=== PATIENT | female | born 1965 | race Caucasian/White ===

== ENCOUNTER 2024-12-27 13:00 | Inpatient (IN) | payer MEDICARE, OTHER, SELFPAY ==
[2024-12-27] VITALS (8 sets, daily range): BP systolic 105–154; BP diastolic 65–103
--- NOTE | 2024-12-27 10:55 | ED.GENMED ---
History of Present Illness
General
Chief Complaint: Fever
Source: patient, ambulance crew and prison
Time Seen by Provider: 12/27/24 10:36
History of Present Illness
History of Present Illness:
59-year-old female brought to the emergency room from [facility] where she was found to be tremulous and slow to answer questions. Her baseline mental status is mildly confused but interactive. She has a history of bipolar disease. Upon
arrival here in the emergency room she is found to have a fever with a temperature of 102.9. Patient offers no complaints. She denies chest pain, abdominal pain, dysuria, frequency, sore throat. When asked if she feels like 1 million bucks she
says yes.
Phy Exam
Physical Exam
Physical Exam:
General: Awake, Alert, Oriented X3. No acute distress.
Vitals: Febrile
Head: Atraumatic
Eyes: Pupils equal, EOMI
Throat: Airway intact, no exudates
Neck: Trachea midline
Lungs: Clear and equal b/l
Heart: Regular rate, no murmurs
Abd: Soft, Nontender, No pulsatile mass
Back: No CVA tenderness to percussion
Neuro: Nonfocal
Skin: Warm, dry, no rash
Extremities: pulses equal b/l, no edema
Sepsis
Sepsis Screening
Sepsis Assessment: Sepsis
Sepsis Screening: ARF-Creatinine >2.0
Sepsis Screen
Sepsis Screen: Sepsis
Date: 12/27/24
Time: 18:17
Course
Orders/Labs/Results
Orders:
Orders
12/27/24 10:45
Complete Blood Count/With Diff Urgent
Comprehensive Metabolic Panel Urgent
Lactic Acid Urgent
Urinalysis Reflex To Culture Urgent
Date Specimen was Collected: 12/27/24
Time Specimen was Collected: 10:43
Urine Microscopic Reflex Cult Urgent
Blood Culture Urgent
[facility] Source: Blood/Venous
Specimen Description:
Date Specimen was Collected: 12/27/24
Time Specimen was Collected: 10:43
Urine Culture Urgent
[facility] Source: U
Specimen Description:
Date Specimen was Collected: 12/27/24
Time Specimen was Collected: 10:43
12/27/24 10:48
COVID-19 Antigen Urgent
Source: Nasal Swab
Blood Culture Urgent
[facility] Source: Blood/Venous
Specimen Description:
Influenza A+B Rapid Molecular Urgent
[facility] Source: Nasal Swab
Specimen Description:
12/27/24 10:54
0.9% Sodium Chloride 1000 ml [Nss] 1,000 ml IV BOLUS
Acetaminophen [Tylenol] 650 mg PO NOW STA
CR Chest - 2 Views Urgent
Comment:
Reason For Exam: fever
12/27/24 11:43
CefTRIAXone [Rocephin] 2,000 mg IV NOW STA
12/27/24 11:46
CT Abd/pel Without Iv Or Oral Urgent
Comment:
Reason For Exam: fever, uti, elevated creat, eval for stone
12/27/24 11:48
Sterile Water [Sterile Water For Injection] 20 ml .ROUTE .STK-MED
12/27/24 12:49
Admit/Transfer Patient As Directed
Co-Sign Provider:
Level of Care: Inpatient admission
Assign to:: Medical/Surgical
Physician / Group: Darrell
Diagnosis: Confusion
Reason for Hospitalization: confusion
Expected length of stay greater than two midnights?: Yes
ELOS- Estimated Length of Stay in days: 3
I certify the patient meets the requirements for IP care: Yes
12/27/24 12:50
PRN Pain Medication Management As Directed
May give lesser potent ordered pain med per pt: Yes
preference::
Protocol:: Medication orders for pain may be administered in a
manner that supports deferring to patient preference
when the pt is:
- Requesting an ordered lesser potent pain medication.
Least to most potent pain medications are defined
as: acetaminophen < NSAID < tramadol < opioids
(morphine, oxycodone, hydromorphone).
- Requesting a lesser dose of the same medication IF
ORDERED.
- Requesting a less intrusive route of administration
if both routes are prescribed by the provider (PO <
IV).
12/27/24 13:40
Bisacodyl [Dulcolax] 10 mg RECTAL DAILYPRN PRN IF NO BM AFTR MOM
Magnesium Hydroxide [Milk of Magnesia] 30 ml PO HSPRN PRN IF NO BM BY 3RD DAY
12/27/24 13:40
DX Deep Vein Thrombosis Video Routine
12/27/24 18:00
Enoxaparin Sodium [Lovenox] 40 mg SC QPM
12/27/24 22:00
Divalproex Delayed Rel. 12 Hr [Depakote (12 Hr Release)] 2,500 mg PO HS
Lorazepam [Ativan] 0.5 mg PO HS
Oxybutynin Chloride [Ditropan] 5 mg PO HS
12/28/24 06:00
Levothyroxine [Synthroid] 88 mcg PO DAILY@0600
12/28/24 08:00
Aripiprazole [Abilify] 20 mg PO DAILY
Lurasidone HCl [Latuda] 120 mg PO DAILY
Metoprolol Xl [Toprol Xl] 50 mg PO DAILY
Multivitamin [Theragran] 1 tablet PO DAILY
Valsartan [Diovan] 160 mg PO DAILY
Abnormal Lab Results
12/27/24
10:45
RBC 3.52 L 10^6/uL
(4.20-5.40)
Hgb 11.7 L g/dL
(12.0-16.0)
Hct 34.7 L %
(37.0-47.0)
MCH 33.2 H pg
(27.0-31.0)
Plt Count 74 L 10^3/uL
(130-400)
Abs Immat Gran (auto) 0.1 H 10^3/uL
(0-0.05)
Absolute Monos (auto) 1.3 H 10^3/uL
(0.1-0.6)
Immature Gran % 1.1 H %
(0-0.5)
Lymphocytes % 19.7 L %
(20.5-51.1)
Monocytes % 16.2 H %
(1.7-9.3)
Chloride 115 H mmol/L
(98-107)
Carbon Dioxide 21 L mmol/L
(22-30)
BUN 32 H mg/dl
(7-17)
Creatinine 2.3 H mg/dL
(0.6-1.0)
Total Protein 6.1 L g/dl
(6.3-8.2)
Albumin 3.1 L g/dl
(3.5-5.0)
Ur Occult Blood Reflex 3+ A
(Negative)
Leukocyte Esterase Rfl 3+ A
(Negative)
Urine RBC 3-6 A /HPF
(0-2)
Urine WBC (Reflex) 30-40 A /HPF
(0-5)
Urine Bacteria (Reflex) Few A
(Negative)
Urine Albumin (Reflex) 3+ A
(Neg - Trace)
12/27/24 10:45
12/27/24 10:45
Vital Signs
Initial and Last Documented VS:
Initial Vital Signs
Temp Pulse Resp BP Pulse Ox
102.9 F H 79 16 135/74 96
12/27/24 10:33 12/27/24 10:33 12/27/24 10:33 12/27/24 10:33 12/27/24 10:33
Last Documented Vital Signs
Temp Pulse Resp BP Pulse Ox
99.0 F 91 16 154/103 98
12/27/24 15:35 12/27/24 15:35 12/27/24 15:35 12/27/24 15:35 12/27/24 15:35
MDM/Problems Addressed
Differential Diagnosis Includes:
COVID, influenza, urinary tract infection, pneumonia
MDM/Problems Addressed:
Patient presents with confusion, fever. Workup here reveals urine that is suggestive of a urinary tract infection. Chest x-ray is no acute disease. Patient treated with antipyretics, IV antibiotics, IV fluids. She is remaining hemodynamically
stable. Will hospitalize for IV antibiotics, close monitoring
*Radiology
Radiology exam reviewed: preliminary read by ED provider (No acute abnormality I reviewed patient's chest x-ray)
*Pulse Oximetry
SaO2: 96
Oxygen Mode of Delivery: Room air
Patient hypoxic: no
*Critical Care Note
Total Time (30-74mins, 75-104mins- exclusive of procedures): Not Applicable
Patient Management
Social determinants of health affecting care: Living situation
ED Attending Note
-
Portions of this chart may have been created with voice recognition software.� Occasional wrong word or��sound alike� substitutions may have occurred due to the inherent limitations of voice recognition software.
Discharge Plan
Departure
Patient Disposition: Admit
Date of Disposition: 12/27/24
Time of Disposition: 11:45
Admit to: Med/Surg
Presentation/result/management discussed w/ accepting MD/DO: Hospitalist
Condition: Fair
Discharge Problem:
UTI (urinary tract infection), Sepsis
Interventions
Interventions:
*Risk Screen - Suicide Last Done: 12/27/24 10:55
*General Assessment Last Done: 12/27/24 10:55
*Neglect/Abuse Screening Last Done: 12/27/24 10:55
*ED- Fall Risk Assessment Last Done: 12/27/24 10:55
*ED COVID-19 Vaccine History Last Done: 12/27/24 10:55
*Nursing Disposition Last Done: 12/27/24 13:28
ED- Neurological Assessment Last Done: 12/27/24 10:55
ED-Skin Assessment Last Done: 12/27/24 10:55
Discharge Date and Time
Discharge Date/Time: 12/27/24 13:35
[2024-12-27 10:57] LABS: Urine Character Clear (Clear)
[2024-12-27] MEDS: TYLENOL 650 MG PO ×2 (10:59→15:35)
[2024-12-27] MEDS: NSS 1000 IV ×2 (10:59→14:24)
[2024-12-27 11:08] LABS: Urine White Cell 30-40 /HPF (0-5)
[2024-12-27 11:11] LABS: Hematocrit 34.7 % (37.0-47.0); Hemoglobin 11.7 g/dL (12.0-16.0); Mean Corp Hgb Conc. 33.7 g/dL (33.0-37.0); Mean Corpuscular Volume 98.6 fL (81.0-99.0); Nucleated Red Blood Cells % 0.3 %; Red Cell Dist. Width 13.2 % (11.5-14.5)
[2024-12-27 11:14] LABS: COVID-19 Antigen Negative (Negative)
[2024-12-27 11:20] LABS: ALT (SGPT) 17 U/L (0-35); AST (SGOT) 19 U/L (14-36); Albumin 3.1 g/dl (3.5-5.0); Alkaline Phosphatase 68 U/L (38-126); Blood Urea Nitrogen 32 mg/dl (7-17); Calcium 9.8 mg/dl (8.4-10.2); Carbon Dioxide 21 mmol/L (22-30); Chloride 115 mmol/L (98-107); Glucose 87 mg/dl (70-99); Potassium 4.4 mmol/L (3.5-5.1); Sodium 142 mmol/L (135-145); Total Protein 6.1 g/dl (6.3-8.2); eGFR 23.89
[2024-12-27 11:37] LABS: Platelet Count 74 10^3/uL (130-400)
[2024-12-27] MEDS: ROCEPHIN 2000 MG IV (11:51)
--- NOTE | 2024-12-27 13:20 | HPS.HSE ---
Family Physician
-
Family Physician: Massimo Julien MD
Chief Complaint
-
Generalized weakness and worsening confusion
History of Present Illness
59-year-old female who is resident of [facility] who is a very poor historian with known history of mood disorder, hypertension sent to the hospital for evaluation of worsening confusion with baseline is confused, she is oriented x 3, speaks in
low tone of voice and very slow and takes time to answer question she claiming that she does not get treated well [facility] and she wanted to be sent to a new place, denies any particular discomfort.
Workup in the ER can concerning for dehydration and UTI. Denies history of seizure.
Medical History
Past Medical History
Past Medical History: Reports Other
Additional Past Medical History:
Difficult to obtain from the patient:
Hypertension
Mood and bipolar disorder
Social history: Resident of the [facility] denies smoking or alcohol use.
Family history: Heart to obtain
Past Surgical History: Reports Other
Social History
Alcohol: Other
Employment: Other
Family History
Family History: Other
Allergies / Home Medications
Allergies reflects when Allergies were last updated in [facility].
Home Medications with original date entered in [facility]
Allergy/Medication List:
Allergies
Allergy/AdvReac Type Severity Reaction Status Date / Time
No Known Allergies Allergy Unverified 12/27/24 10:52
Home Medications
acetaminophen 325 mg tablet (Tylenol) 650 mg PO Q6HPRN PRN MILD PAIN 12/27/24
aripiprazole 20 mg tablet 20 mg PO DAILY 12/27/24
bisacodyl 10 mg rectal suppository (Dulcolax (bisacodyl)) 10 mg [place] DAILYPRN PRN IF NO BM AFTR MOM 12/27/24
divalproex 500 mg tablet,delayed release (Depakote) 2,500 mg PO HS 12/27/24
levothyroxine 88 mcg tablet (Synthroid) 88 mcg PO DAILY 12/27/24
lorazepam 0.5 mg tablet 0.5 mg PO HS 12/27/24
lurasidone 120 mg tablet (Latuda) 120 mg PO DAILY 12/27/24
magnesium hydroxide 400 mg/5 mL oral suspension (Milk of Magnesia) 2,400 mg PO HSPRN PRN IF NO BM BY 3RD DAY 12/27/24
metoprolol succinate 50 mg tablet,extended release 24 hr (Toprol XL) 50 mg PO DAILY 12/27/24
oxybutynin chloride 5 mg tablet,extended release 24 hr 5 mg PO HS 12/27/24
sodium phosphates 19 gram-7 gram/118 mL enema (Fleet Enema) 118 ml [place] DAILYPRN PRN IF NO BM AFTR DULCOLAX 12/27/24
therapeutic multivitamin 1 tab PO DAILY 12/27/24
valsartan 160 mg tablet 160 mg PO DAILY 12/27/24
Review of Systems
-
Unable to obtain full review of systems at this time due to: Other (Very poor historian to provide information's.)
Physical Exam
Vital Signs
Vital Signs
Temp Pulse Resp BP Pulse Ox
100.5 F H 84 10 135/70 96
12/27/24 12:52 12/27/24 12:00 12/27/24 12:00 12/27/24 12:00 12/27/24 12:00
Does not follows command Asif:
Physical exam:
General: Awake, alert and oriented x3, extremely confused, speaks in low tone of voice not in distress , some of answer not related to the question,
HEENT: No active discharge, ecchymosis or bruising, moist lips, tongue and mucous membrane.
Eyes: No discharge or red conjunctiva, no nystagmus, pupils are reactive and equal
Neck:Supple, no JVD no bruit no goiter.
Lungs: Good air entry bilaterally, no wheezing or rhonchi, no rales or crackles
Heart: S1, S2 regular, normal rate, no added sound.
Gastrointestinal: Positive bowel sounds, soft, nontender, no guarding or rigidity or organomegaly
Extremities: Mild lower extremity pitting edema, good peripheral pulses, good range of motion
Skin: Warm and dry, no ulceration, normal color.
Neurological: Awake, alert and oriented x3, extremely confused, cognitive decline appreciated,, speech is broken, slow with frequent pauses but comprehensive, good muscle tone, move extremities well
Psychiatric: Normal mood, normal thought and judgment, normal affect,
Physical Exam
General: Other
Laboratory Results
-
12/27/24 10:45
12/27/24 10:45
Laboratory Results
Lactic Acid 1.1 mmol/L (0.7-2.0) 12/27/24 10:45
Total Bilirubin 0.5 mg/dl (0.2-1.3) 12/27/24 10:45
AST 19 U/L (14-36) 12/27/24 10:45
ALT 17 U/L (0-35) 12/27/24 10:45
Alkaline Phosphatase 68 U/L (38-126) 12/27/24 10:45
Chest x-ray: No acute abnormalities
Data Reviewed
-
Diagnostic Radiology: Image Personally Visualized and interpreted and Report Reviewed by me
Lab Data: Labs Reviewed by me
Old Records: Reviewed
Impression/Plan
-
IMPRESSION:
59-year-old female resident of the [facility] with history of mood and bipolar disorder sent to the hospital for worsening mentation and confusion, looks dry and workup can concerning for UTI and hard to obtain information from her.
Confusion:
Worsening from the baseline according to the report from the ER.
Likely secondary to dehydration and UTI.
IV fluid
IV Rocephin can be decided pending culture and sensitivity
PT OT
Swallow eval, patient admits she eats regular food
Fall precaution
Urinary tract infection:
IV Rocephin
Bipolar disorder:
Omeprazole and Depakote will continue
Lorazepam at at bedtime
Hypothyroidism: Levothyroxine 88 mcg
Check TSH
[2024-12-27] MEDS: SENOKOT-S 1 TABLET PO (15:37)
--- NOTE | 2024-12-27 15:47 | PTOTSP ---
Speech Therapy Evaluation:
Pt with acute risk factors for dysphagia including confusion/UTI with suspected cognitive decline. Pt with mild oral impairments, likely in the setting of edentulous state. No overt s/sx of aspiration across PO trials, however assessment somewhat
limited due to declination of solids. Pt passed 3oz swallow screen, WBC WNL, and pt on room air. CXR without pneumonia
Recommend:
1. Diet downgrade to IDDSI Level 6 (soft and bite sized solids), continue thin liquids
2. Medications as best tolerated
3. General aspiration precautions
4. Partial supervision and assistance with PO intake
5. PARTS ROOM ASSOCIATE to follow to monitor tolerance of diet, determine if pt requires further modifications/advancements, and provide education in aspiration precautions
[2024-12-27] MEDS: LOVENOX 40 MG SC (17:28)
--- NOTE | 2024-12-27 19:30 | PTCARENOTE ---
Pt heard crying in room and screaming for help. Pt reported to this RN 10/10 pain in R thigh. Pt not due for tylenol at this time. BRADLY Guzman messaged for stronger pain medication. PRN dilaudid ordered. Refer to MAR. US of b/l JESSICA ordered to
rule out DVT. Plan of care ongoing.
[2024-12-27] MEDS: DILAUDID 0.25 MG IV (19:42)
[2024-12-27] MEDS: DEPAKOTE (12 HR RELEASE) PO (21:41)
[2024-12-27] MEDS: ATIVAN PO (21:41)
[2024-12-27] MEDS: DITROPAN PO (21:41)
[2024-12-27] MEDS: TYLENOL/FEVERALL 650 MG RECTAL (22:00)
--- NOTE | 2024-12-27 22:15 | PTCARENOTE ---
Addendum entered by Veronika Jordan RN 12/28/24 04:33:
2200 medications held due to patient's drowsiness.
Original Note:
This RN went into pt's room to administer medications and obtain VS. Pt with a fever of 101.1 F. Pt very drowsy and aspiration risk. BRADLY Guzman notified of drowsiness and fever. Rectal tylenol ordered. Refer to MAR. Plan of care ongoing.
--- NOTE | 2024-12-27 23:50 | PTCARENOTE ---
Pt now with a temp of 102.2. BRADLY Guzman notified. Will pack pt with ice per orders of GENERAL HELPER. Plan of care ongoing.
[2024-12-28] MEDS: NSS 1000 IV (00:46)
--- NOTE | 2024-12-28 03:00 | PTCARENOTE ---
Pt now with temperature of 99.9 and less drowsy. Plan of care ongoing.
[2024-12-28] MEDS: SYNTHROID 88 MCG PO (05:42)
[2024-12-28 07:00] VITALS: BP 102/74
[2024-12-28] MEDS: DIOVAN 160 MG PO (08:39)
[2024-12-28] MEDS: THERAGRAN 1 TABLET PO (08:39)
[2024-12-28] MEDS: ABILIFY 20 MG PO (08:39)
[2024-12-28] MEDS: LATUDA 120 MG PO (08:39)
[2024-12-28] MEDS: TOPROL XL 50 MG PO (08:41)
[2024-12-28 09:41] LABS: Hematocrit 33.4 % (37.0-47.0); Hemoglobin 11.3 g/dL (12.0-16.0); Mean Corp Hgb Conc. 33.8 g/dL (33.0-37.0); Mean Corpuscular Volume 99.1 fL (81.0-99.0); Platelet Count 66 10^3/uL (130-400); Red Cell Dist. Width 13.2 % (11.5-14.5)
[2024-12-28 10:00] LABS: Blood Urea Nitrogen 29 mg/dl (7-17); Calcium 9.3 mg/dl (8.4-10.2); Carbon Dioxide 19 mmol/L (22-30); Chloride 113 mmol/L (98-107); Glucose 60 mg/dl (70-99); Potassium 4.4 mmol/L (3.5-5.1); Sodium 140 mmol/L (135-145); eGFR 26.64
[2024-12-28 10:21] LABS: TSH 2.19 uIU/ml (0.47-4.68)
[2024-12-28 10:58] LABS: Folate 4.6 ng/ml (2.76-20); Vitamin B12 682 pg/ml (239-931)
[2024-12-28 11:41] LABS: Depakane 35.4 ug/ml (50.0-120.0)
[2024-12-28] MEDS: STERILE WATER FOR INJECTION 10 ML IV (12:10)
[2024-12-28] MEDS: ROCEPHIN 1000 MG IV (12:11)
[2024-12-28 12:30] VITALS: BP 133/82; PULSE 58; O2SAT 99
[2024-12-28 12:38] VITALS: BP 133/82; PULSE 58; O2SAT 99
--- NOTE | 2024-12-28 14:23 | W.PN.HOSP.TC ---
Today's Communication/Plan
-
Continue antibiotics, recheck urine culture
Assessment / Plan
Assessment / Plan
59F w/ mood disorder, hypertension sent from [place] for evaluation of worsening confusion. Found to have dehydration and UTI.
Acute encephalopathy:
Worsening confusion from the baseline according to the report from the ER.
Likely secondary to dehydration and UTI.
s/p IV fluid
Continue IV Rocephin
PT OT
Swallow eval, patient admits she eats regular food
Fall precaution
Monitor AMS
Urinary tract infection:
IV Rocephin
UCX with normal casie, will recheck
Thrombocytopenia:
will request outside records to see if avute or chronic
Bipolar disorder:
Omeprazole and Depakote, will continue. Checked Depakote level -low at 35, d/w Dr. Gonsalves will not increase due to low plt
Lorazepam at at bedtime
Tremor:
Patient reports this is chronic, per neurology Dr. Gonsalves valproic acid can produce a tremor, checked level�35 (therapeutic level 50-100)
Hypothyroidism:
Levothyroxine 88 mcg
TSH 2.19
DVT ppx
Lovenox
Anticipated Discharge: 24 - 48 hours
Subjective/Interval History
-
Date of Service: December 28, 2024
Patient denies any acute. She notes her tremor is chronic. She asks me where her mother is. When pressed, she does not answer most questions.
Objective Data
-
Labs:
Laboratory Results
12/28/24
08:03
WBC 11.8 H
Hgb 11.3 L
Hct 33.4 L
Plt Count 66 L
Sodium 140
Potassium 4.4
Chloride 113 H
Carbon Dioxide 19 L
BUN 29 H
Creatinine 2.1 H
Glucose 60 L
Calcium 9.3
Vital Signs:
Vital Signs
Temp Pulse Resp BP Pulse Ox
99.2 F 61 19 167/80 94
12/28/24 07:00 12/28/24 08:41 12/28/24 07:00 12/28/24 08:41 12/28/24 07:00
I&O
12/27/24 12/28/24 12/29/24
06:59 06:59 06:59
Intake Total 600 / 600 480 / 480
Balance 600 / 600 480 / 480
Review of Systems
-
All other systems: Reviewed and negative
Physical Exam
-
General: No Apparent Distress
HEENT: Moist Mucous Membranes, Anicteric and PERRLA
Respiratory: Clear to Auscultation; Negative Wheezes, Rales or Rhonchi
Cardiac: Regular Rhythm and S1/S2; Negative Murmur, Rub or Gallop
GI: Soft, Nontender, Nondistended and Normal Bowel Sounds
Musculoskeletal: No Edema
Skin: Warm and Dry; Negative Rash, Ulcers or Lesions
Neuro: Awake, Alert, Oriented (to self and place) and Tremors
Hematologic / Lymphatic: No Lymphadenopathy
Psych: Calm and Confused
Data Reviewed
-
Diagnostic Radiology: Report Reviewed by me
CT Scan: Report Reviewed by me
Labs: Labs Reviewed by me and Discussed with Patient
[2024-12-28 15:00] VITALS: BP 120/75
--- NOTE | 2024-12-28 15:56 | CM ---
Pt is jail at [facility] Pt with bed hold. Spoke with Dru at [facility] . She uses a walker and assisted in ADLs. She She speaks in slow. Pt is jail at [facility] she will need to return . Pt said she did not want to return [facility] .SW at [facility]
will need to arrange transfer. She uses a walker.
[facility]
PCP Dr Holman
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
[2024-12-28] MEDS: LOVENOX 40 MG SC (17:00)
[2024-12-28] MEDS: ATIVAN 0.5 MG PO (21:32)
[2024-12-28] MEDS: DEPAKOTE (12 HR RELEASE) 2500 MG PO (21:33)
[2024-12-28] MEDS: DITROPAN 5 MG PO (21:33)
[2024-12-28 21:36] VITALS: BP 135/80
[2024-12-29] MEDS: SYNTHROID 88 MCG PO (05:49)
[2024-12-29 07:15] VITALS: BP 136/72
[2024-12-29] MEDS: TOPROL XL 50 MG PO (08:41)
[2024-12-29] MEDS: THERAGRAN 1 TABLET PO (08:41)
[2024-12-29] MEDS: ABILIFY 20 MG PO (08:41)
[2024-12-29] MEDS: DIOVAN 160 MG PO (08:41)
[2024-12-29] MEDS: LATUDA 120 MG PO (08:41)
--- NOTE | 2024-12-29 08:44 | PN.CDI ---
CDI
- -
CDI:
Physician Documentation Request
Admit Date: 12/27/24 13:00
Dear Doctor Hiren,
Patient admitted with UTI.
12/28 PN,'Acute encephalopathy....Worsening confusion from the baseline according to the report from the ER....Likely secondary to dehydration and UTI.'
Based on the above, please provide in your note the likely type of documented acute encephalopathy:
Metabolic encephalopathy
Toxic metabolic encephalopathy
Other
Use of terms such as suspected, likely, concern for, or probable (associated with a specific diagnosis that is being evaluated, monitored, or treated as if it exists) are acceptable and can be coded in the inpatient setting, when documented at the
time of discharge.
Thank you,
Mame BROWNLEE,RN,CCDS
CDI Specialist
Available via [place] text
Please use your independent medical judgment in providing your response.
[2024-12-29 09:52] LABS: Blood Urea Nitrogen 33 mg/dl (7-17); Calcium 9.3 mg/dl (8.4-10.2); Carbon Dioxide 23 mmol/L (22-30); Chloride 113 mmol/L (98-107); Glucose 76 mg/dl (70-99); Potassium 4.6 mmol/L (3.5-5.1); Sodium 143 mmol/L (135-145); eGFR 26.64
[2024-12-29 10:27] LABS: Hematocrit 34.2 % (37.0-47.0); Hemoglobin 11.2 g/dL (12.0-16.0); Mean Corp Hgb Conc. 32.7 g/dL (33.0-37.0); Mean Corpuscular Volume 99.1 fL (81.0-99.0); Nucleated Red Blood Cells % 0 %; Platelet Count 79 10^3/uL (130-400); Red Cell Dist. Width 13.0 % (11.5-14.5)
--- NOTE | 2024-12-29 12:58 | W.PN.HOSP.TC ---
Addendum entered and electronically signed by Cassi Maradiaga MD 12/29/24 13:24:
for cdi - metabolic encephalopathy
Original Note:
Today's Communication/Plan
-
Await urine culture E. coli sensitivities
Continue IV Rocephin
Per our CM, patient will have to go back to her current NH and then from there her high school social studies tutor can initiate transfer to a different NH
Assessment / Plan
Assessment / Plan
59F w/ mood disorder, hypertension sent from NH for evaluation of worsening confusion. Found to have dehydration and UTI.
Acute encephalopathy -improved
Worsening confusion from the baseline according to the report from the ER. She now appears improved after treatment.
Likely secondary to dehydration and UTI.
s/p IV fluid
Continue IV Rocephin
PT OT
Fall precaution
Monitor AMS
Urinary tract infection:
Continue IV Rocephin
First UCX with normal casie, on recheck UCX now growing E. coli. Await final sensitivities.
Thrombocytopenia:
will request outside records to see if acute or chronic. It is stable.
Bipolar disorder:
Omeprazole and Depakote, will continue. Checked Depakote level -low at 35, d/w Dr. Gonsalves, will not increase due to low plt
Lorazepam at at bedtime
Tremor:
Patient reports this is chronic, per neurology Dr. Gonsalves valproic acid can produce a tremor, checked level�35 (therapeutic level 50-100)
Hypothyroidism:
Levothyroxine 88 mcg
TSH 2.19
DVT ppx
Lovenox
Anticipated Discharge: 24 - 48 hours
Subjective/Interval History
-
Date of Service: December 29, 2024
Patient feeling well denies any acute issues overnight. She notes that she does not like [facility] because she had no hot water for 20 days and wishes to not go back there and asked to speak to the foster care case manager. I advised the foster care case manager
about this and she noted that since patient is a long-term resident she would have to go back there and then the high school social studies tutor from would have to initiate the transfer to a different facility.
Objective Data
-
Labs:
Laboratory Results
12/29/24
08:57
WBC 9.8
Hgb 11.2 L
Hct 34.2 L
Plt Count 79 L
Sodium 143
Potassium 4.6
Chloride 113 H
Carbon Dioxide 23
BUN 33 H
Creatinine 2.1 H
Glucose 76
Calcium 9.3
Vital Signs:
Vital Signs
Temp Pulse Resp BP Pulse Ox
98.4 F 61 15 136/72 97
12/29/24 07:15 12/29/24 07:15 12/29/24 07:15 12/29/24 07:15 12/29/24 07:15
I&O
12/28/24 12/29/24 12/30/24
06:59 06:59 06:59
Intake Total 600 / 600 1800 / 1800
Balance 600 / 600 1800 / 1800
Review of Systems
-
All other systems: Reviewed and negative
Physical Exam
-
General: No Apparent Distress
HEENT: Moist Mucous Membranes, Anicteric and PERRLA
Respiratory: Clear to Auscultation; Negative Wheezes, Rales or Rhonchi
Cardiac: Regular Rhythm and S1/S2; Negative Murmur, Rub or Gallop
GI: Soft, Nontender, Nondistended and Normal Bowel Sounds
Musculoskeletal: No Edema
Skin: Warm and Dry; Negative Rash, Ulcers or Lesions
Neuro: Awake, Alert, Oriented (to self and place) and Tremors
Hematologic / Lymphatic: No Lymphadenopathy
Psych: Calm and Confused
Data Reviewed
-
Labs: Labs Reviewed by me and Discussed with Patient
[2024-12-29] MEDS: STERILE WATER FOR INJECTION 10 ML IV (13:02)
[2024-12-29] MEDS: ROCEPHIN 1000 MG IV (13:03)
[2024-12-29 15:30] VITALS: BP 119/65
--- NOTE | 2024-12-29 15:59 | CM ---
Spoke with patient in her room.
Explained that at [place] she will need to return to [facility] .
Explained pillowcase cutter at [facility] will need to locate and transfer to another facility.
Radha at [facility] will notified case manger .
[facility] contacted to fax recent labs for MD.
Pt will need ambulance at [place].
[facility]
report [phone]
fax [phone]
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
--- NOTE | 2024-12-29 16:23 | W.PN.UPDATE ---
Update Note
Progress Note Update
Spoke to pt's mother by phone, she is concerned bc despite tx for UTI, pt doesn't seem back to baseline, for example, still doesn't remember her best friend's phone number which she normally knows by heart, and also she is still concerned about the
tremor and the possibility of CVA/TIA. On review of chart pt didn't have head imaging in ED. Will order CTH. Relayed message to pt's mom who appreciates update.
[2024-12-29] MEDS: LOVENOX 40 MG SC (18:07)
[2024-12-29] MEDS: DITROPAN 5 MG PO (21:37)
[2024-12-29] MEDS: ATIVAN 0.5 MG PO (21:37)
[2024-12-29] MEDS: DEPAKOTE (12 HR RELEASE) 2500 MG PO (21:37)
[2024-12-29 23:00] VITALS: BP 115/73
--- NOTE | 2024-12-30 02:36 | DOWNTIME ---
There was a [employer] Client Activities Officer Downtime on 12/30/2024 from 0100 to 12/30/2024 at 0215. Downtime documentation of patient's care, including medication administrations, has been reconciled in the electronic record per guidelines. Refer to the
patient's paper chart under the miscellaneous tab to see printed paper medication records and downtime forms.
[2024-12-30] MEDS: SYNTHROID 88 MCG PO (05:39)
[2024-12-30 07:53] VITALS: BP 122/70
[2024-12-30] MEDS: ABILIFY 20 MG PO (08:31)
[2024-12-30] MEDS: LATUDA 120 MG PO (08:31)
[2024-12-30] MEDS: THERAGRAN 1 TABLET PO (08:31)
[2024-12-30 09:45] VITALS: BP 122/84
[2024-12-30] MEDS: DIOVAN 160 MG PO (09:49)
[2024-12-30] MEDS: TOPROL XL 50 MG PO (09:50)
--- NOTE | 2024-12-30 11:11 | CM ---
Patient seen at bedside on . Patient from [facility] and plan is return when medically appropriate. CM will continue to follow for discharge planning needs.
Plan; return to SNF
[2024-12-30 11:43] LABS: Hematocrit 31.9 % (37.0-47.0); Hemoglobin 10.8 g/dL (12.0-16.0); Mean Corp Hgb Conc. 33.9 g/dL (33.0-37.0); Mean Corpuscular Volume 97.6 fL (81.0-99.0); Nucleated Red Blood Cells % 0 %; Platelet Count 100 10^3/uL (130-400); Red Cell Dist. Width 12.8 % (11.5-14.5)
[2024-12-30 11:47] LABS: Blood Urea Nitrogen 38 mg/dl (7-17); Calcium 9.0 mg/dl (8.4-10.2); Carbon Dioxide 22 mmol/L (22-30); Chloride 111 mmol/L (98-107); Glucose 113 mg/dl (70-99); Potassium 3.7 mmol/L (3.5-5.1); Sodium 137 mmol/L (135-145); eGFR 30.04
[2024-12-30] MEDS: ROCEPHIN 1000 MG IV (12:08)
[2024-12-30] MEDS: STERILE WATER FOR INJECTION 10 ML IV (12:08)
--- NOTE | 2024-12-30 13:43 | W.PN.HOSP.TC ---
Today's Communication/Plan
-
Await urine culture E. coli sensitivities
Continue IV Rocephin
Plan discharge likely tomorrow
Assessment / Plan
Assessment / Plan
59F w/ mood disorder, hypertension sent from [place] for evaluation of worsening confusion. Found to have dehydration and UTI.
Acute encephalopathy -improved
Worsening confusion from the baseline according to the report from the ER. She now appears improved after treatment.
Likely secondary to dehydration and UTI.
CT head unremarkable for acute issue
s/p IV fluid
Continue IV Rocephin
PT OT
Fall precaution
Monitor AMS
Urinary tract infection:
Continue IV Rocephin
First UCX with normal casie, on recheck UCX now growing E. coli. Await final sensitivities.
Thrombocytopenia:
Follow-up outside records to see if chronic TCP
Bipolar disorder:
Omeprazole and Depakote, will continue. Checked Depakote level -low at 35, d/w Dr. Gonsavles, will not increase due to low plt
Lorazepam at at bedtime
Tremor:
Patient reports this is chronic, per neurology Dr. Gonsalves valproic acid can produce a tremor, checked level�35 (therapeutic level 50-100)
Hypothyroidism:
Levothyroxine 88 mcg
TSH 2.19
DVT ppx
Lovenox
Anticipated Discharge: Within 24 hours
Subjective/Interval History
-
Date of Service: December 30, 2024
Patient feeling well still having some issues with remembering certain phone numbers but her tremor is back to baseline patient. I updated her on the results of her CT scan
Objective Data
-
Labs:
Laboratory Results
12/30/24
11:19
WBC 6.7
Hgb 10.8 L
Hct 31.9 L
Plt Count 100 L D
Sodium 137
Potassium 3.7
Chloride 111 H
Carbon Dioxide 22
BUN 38 H
Creatinine 1.9 H
Glucose 113 H
Calcium 9.0
Vital Signs:
Vital Signs
Temp Pulse Resp BP Pulse Ox
98.1 F 67 16 122/84 96
12/30/24 07:53 12/30/24 09:49 12/30/24 07:53 12/30/24 09:49 12/30/24 07:53
I&O
12/29/24 12/30/24 12/31/24
06:59 06:59 06:59
Intake Total 1800 / 1800
Balance 1800 / 1800
Review of Systems
-
All other systems: Reviewed and negative
Physical Exam
-
General: No Apparent Distress
HEENT: Moist Mucous Membranes, Anicteric and PERRLA
Respiratory: Clear to Auscultation; Negative Wheezes, Rales or Rhonchi
Cardiac: Regular Rhythm and S1/S2; Negative Murmur, Rub or Gallop
GI: Soft, Nontender, Nondistended and Normal Bowel Sounds
Musculoskeletal: No Edema
Skin: Warm and Dry; Negative Rash, Ulcers or Lesions
Neuro: Awake, Alert, AO x 3 and Tremors (mild/fine)
Hematologic / Lymphatic: No Lymphadenopathy
Psych: Calm and Intact Judgement/Insight
Data Reviewed
-
CT Scan: Report Reviewed by me and Discussed with Patient
Labs: Labs Reviewed by me and Discussed with Patient
[2024-12-30 15:10] VITALS: BP 97/62
[2024-12-30] MEDS: LOVENOX 40 MG SC (17:28)
[2024-12-30] MEDS: DITROPAN 5 MG PO (21:47)
[2024-12-30] MEDS: DEPAKOTE (12 HR RELEASE) 2500 MG PO (21:47)
[2024-12-30] MEDS: ATIVAN 0.5 MG PO (21:49)
[2024-12-30 23:55] VITALS: BP 148/72
[2024-12-31] MEDS: SYNTHROID 88 MCG PO (05:27)
[2024-12-31 07:00] VITALS: BP 130/81
[2024-12-31] MEDS: THERAGRAN 1 TABLET PO (07:30)
[2024-12-31] MEDS: ABILIFY 20 MG PO (07:30)
[2024-12-31] MEDS: DIOVAN 160 MG PO (07:30)
[2024-12-31] MEDS: TOPROL XL 50 MG PO (07:30)
[2024-12-31] MEDS: LATUDA 120 MG PO (07:30)
--- NOTE | 2024-12-31 07:48 | W.PN.HOSP.TC ---
Today's Communication/Plan
-
urine culture now showing ESBL E. coli
Change IV Rocephin to ertapenem IV
ID consult
Patient may need SNF on discharge if she is going to be on long-term IV antibiotic
Assessment / Plan
Assessment / Plan
59F w/ mood disorder, [facility] confusion. Found to have dehydration and UTI.
Acute encephalopathy -improved
Worsening confusion from the baseline according to the report from the ER. She now appears improved after treatment.
Likely secondary to dehydration and UTI.
CT head unremarkable for acute issue
s/p IV fluid
Continue IV antibiotics, Cipro
PT OT
Fall precaution
Monitor AMS
Urinary tract infection:
First UCX with normal casie, on recheck UCX now growing E. coli ESBL.
Change IV antibiotic to ertapenem
ID consult
[facility] from 11/2024 with E. coli/Proteus UTI that was dumont S
CKD:
Creatinine stable at 1.9 today. Reviewed outside records, baseline creatinine is 1.99
Thrombocytopenia:
Reviewed outside records, at least since a few months, has had chronic TCP, with platelets as low as 70s. Has been stable here.
Bipolar disorder:
Omeprazole and Depakote, will continue. Checked Depakote level -low at 35, d/w Dr. Gonsalves, will not increase due to low plt
Lorazepam at at bedtime
Tremor:
Patient reports this is chronic, per neurology Dr. Gonsalves valproic acid can produce a tremor, checked level�35 (therapeutic level 50-100). Recheck level now that starting carbapenems.
Hypothyroidism:
Levothyroxine 88 mcg
TSH 2.19
DVT ppx
Lovenox
Anticipated Discharge: 24 - 48 hours
Subjective/Interval History
-
Date of Service: December 31, 2024
Patient feeling back to baseline, really does not want to go back to her previous NH. I updated her on the culture, she notes that she has not been hospitalized for UTI in the past and cannot recall any recent antibiotics. [facility]
labs do show a UTI last month, will have to get records to see if this was treated with antibiotics.
Objective Data
-
Labs:
Laboratory Results
12/30/24
11:19
WBC 6.7
Hgb 10.8 L
Hct 31.9 L
Plt Count 100 L D
Sodium 137
Potassium 3.7
Chloride 111 H
Carbon Dioxide 22
BUN 38 H
Creatinine 1.9 H
Glucose 113 H
Calcium 9.0
Vital Signs:
Vital Signs
Temp Pulse Resp BP Pulse Ox
97.5 F 56 19 130/80 98
12/31/24 07:00 12/31/24 07:30 12/31/24 07:00 12/31/24 07:30 12/31/24 07:00
I&O
12/30/24 12/31/24 01/01/25
06:59 06:59 06:59
Intake Total 1200 / 1200
Balance 1200 / 1200
Review of Systems
-
All other systems: Reviewed and negative
Physical Exam
-
General: No Apparent Distress
HEENT: Moist Mucous Membranes, Anicteric and PERRLA
Respiratory: Clear to Auscultation; Negative Wheezes, Rales or Rhonchi
Cardiac: Regular Rhythm and S1/S2; Negative Murmur, Rub or Gallop
GI: Soft, Nontender, Nondistended and Normal Bowel Sounds
Musculoskeletal: No Edema
Skin: Warm and Dry; Negative Rash, Ulcers or Lesions
Neuro: Awake, Alert, AO x 3 and Tremors (mild/fine)
Hematologic / Lymphatic: No Lymphadenopathy
Psych: Calm and Intact Judgement/Insight
Data Reviewed
-
CT Scan: Report Reviewed by me and Discussed with Patient
Labs: Labs Reviewed by me and Discussed with Patient
--- NOTE | 2024-12-31 09:26 | PTCARENOTE ---
pt oriented to self and place. anxious and agitated at times. inc or urine. able to make needs known
--- NOTE | 2024-12-31 11:30 | CON.ID ---
Consultation
-
Date/Time Consultation Requested: December 31, 2024 1011
Date/Time Consultation Performed: December 31, 2024 1130
Requesting Provider: Dr. Alena Maradiaga
Performing Provider: Dr. Rebeca Hendrix
Reason for Consultation: ESBL E. coli
Chief Complaint / Past History
Chief Complaint
Confusion
History of Present Illness
59-year-old female with history of bipolar disorder, hypothyroidism, who presented from [facility] on December 27 due to acute change in mental status and weakness. In ED temperature 102.9. Chest x-ray negative. CT
of the abdomen pelvis shows cystitis and right perinephric stranding. Urine analysis 3+ leukocyte esterase, 30-40 white blood cells. She was started on ceftriaxone for UTI. The admission urine culture was mixed casie. She had repeat urine
culture on December 28 which resulted as ESBL�E. coli. Ceftriaxone changed to ertapenem today. Patient reports she has history of UTI but not often. Her symptoms usually manifest as fatigue, and malaise. She denies urinary symptoms. No flank
pain. She has intermittent urinary incontinence. She is feeling a little bit better.
Past History
Additional Past Medical History:
Bipolar disorder
Hypertension
Hypothyroidism
Chronic thrombocytopenia
Bilateral total hip replacement
Allergy History:
No Known Allergies Allergy (Unverified 12/27/24 10:52)
Medications Reviewed: Yes
Current Antibiotics:
Status post 4 days of ceftriaxone
Ertapenem day 1
Social History
Tobacco: Non-Smoker
Alcohol: None
Living: Halfway
Family History
Family History: Not Pertinent
Review of Systems
Review of Systems
General: Fever, Chills and Change in Appetite
HEENT: Negative Sinus Problems or Headache
Cardiovascular: Negative Chest Pain or Dyspnea
Respiratory: Negative Dyspnea or Cough
Gasteroenterology: Negative Nausea, Vomiting or Diarrhea
Genital / Urological: Negative Dysuria or Flank Pain
Endocrine: Weakness and Fatigue
Skin / Hair / Nails: Negative Rash
All systems: All other systems were reviewed and were negative
Vital Signs
Temp Pulse Resp BP Pulse Ox
97.5 F 56 19 130/80 98
12/31/24 07:00 12/31/24 07:30 12/31/24 07:00 12/31/24 07:30 12/31/24 07:00
Physical Exam
Physical Exam
Constitutional: Comfortable
Eyes: No Conjunctival Hemorrhage and Sclera Anicteric
Cardiovascular: Regular Rate and S1/S2
Pulmonary: Clear
Gastrointestinal: Soft, Non Tender, Non Distended and Normal Bowel Sounds
Genito-Urinary: Negative Asif or CVA Tenderness
Extremities: Negative Edema
Neurological: AO x 3
Lab / Diagnostic Study Results
12/30/24 11:19
12/30/24 11:19
Abs Immat Gran (auto) 0.1 10^3/uL (0-0.05) H 12/30/24 11:19
Absolute Neuts (auto) 4.0 10^3/uL (1.4-6.5) 12/30/24 11:19
Absolute Lymphs (auto) 1.8 10^3/uL (1.2-3.4) 12/30/24 11:19
Absolute Monos (auto) 0.6 10^3/uL (0.1-0.6) 12/30/24 11:19
Absolute Basos (auto) 0.0 10^3/uL (0-0.2) 12/30/24 11:19
Immature Gran % 1.4 % (0-0.5) H 12/30/24 11:19
Neutrophils % 59.8 % (42.2-75.2) 12/30/24 11:19
Lymphocytes % 26.7 % (20.5-51.1) 12/30/24 11:19
Monocytes % 9.2 % (1.7-9.3) 12/30/24 11:19
Eosinophils % 2.7 % (0-6) 12/30/24 11:19
Basophils % 0.2 % (0-2) 12/30/24 11:19
Lactic Acid 1.1 mmol/L (0.7-2.0) 12/27/24 10:45
Ur Squamous Epith Cells 6-10 /LPF (Few) 12/27/24 10:45
Microbiology Results
Micro:
12/27/24 10:48 Blood Culture - Preliminary
Blood/Venous No Growth in 4 days- Final report to follow
12/27/24 10:45 Blood Culture - Preliminary
Blood/Venous No Growth in 4 days- Final report to follow
12/28/24 16:07 Urine Culture - Final
Urine Escherichia coli - ESBL
Escherichia coli - ESBL#2
12/27/24 15:10 MRSA Screen - Final
Nose No Methicillin Resistant Staphylococcus aureus isolated.
12/27/24 10:45 Urine Culture - Final
Urine
12/27/24 10:48 Influenza Types A & B (JEREMY) - Final
Nasal Swab Negative for Influenza A & B, NAAT
Negative results must be combined with clinical observations
and patient history.
Nucleic Acid Amplification test (NAAT)performed on the
[employer] platform.
12/29/[address]: No acute intracranial abnormality.
12/27/24 CXR: No acute disease of the chest.
12/27/24 CT a/p: There is mild perivesicular stranding suggestive of cystitis. There is mild asymmetric stranding along the right kidney suspicious for infection. There is no evidence of obstructing stone although streak artifact limits evaluation of
the pelvis. No hydronephrosis. 3.4 x 2.8 cm fat-containing heterogeneous lesion within the right adnexa consistent with ovarian dermoid.
Assessment / Plan
# ESBL-Ecoli UTI
# Fever resolved
# Bipolar disorder on depakote
- Blood cx's negative
-Continue Ertapenem 1g IV q24 (day 1 of 7) through 01/06
- Of note Ertapenem can potentially lower Depakote level/efficacy
- Infusion sheet submitted to correctional case records supervisor
- Can place midline.
- Continue contact isolation.
[2024-12-31] MEDS: INVANZ 60 MG IV (11:56)
[2024-12-31] MEDS: STERILE WATER FOR INJECTION IV (11:56)
[2024-12-31 15:00] VITALS: BP 100/73
[2024-12-31 15:45] VITALS: BMI 40.0
--- NOTE | 2024-12-31 16:13 | CM ---
Clinicals sent [facility] as patient is ltc from [facility]. Patient seen at bedside, resting quietly earlier today. CM will continue to follow for discharge planning needs.
Plan; return to SNF; clinicals sent via all scripts.
[2024-12-31] MEDS: LOVENOX 40 MG SC (17:18)
[2024-12-31] MEDS: ATIVAN 0.5 MG PO (21:14)
[2024-12-31] MEDS: DEPAKOTE (12 HR RELEASE) 2500 MG PO (21:15)
[2024-12-31] MEDS: DITROPAN 5 MG PO (21:17)
[2024-12-31 23:16] VITALS: BP 115/69
--- NOTE | 2024-12-31 23:20 | PTCARENOTE ---
Oral care was not performed on patient because she stated that she was too tired and that it was her preference to do it in the morning.
[2025-01-01 04:59] LABS: Hematocrit 30.2 % (37.0-47.0); Hemoglobin 10.4 g/dL (12.0-16.0); Mean Corp Hgb Conc. 34.4 g/dL (33.0-37.0); Mean Corpuscular Volume 99.0 fL (81.0-99.0); Nucleated Red Blood Cells % 0.3 %; Platelet Count 145 10^3/uL (130-400); Red Cell Dist. Width 12.7 % (11.5-14.5)
[2025-01-01 05:42] LABS: Blood Urea Nitrogen 38 mg/dl (7-17); Calcium 9.1 mg/dl (8.4-10.2); Carbon Dioxide 19 mmol/L (22-30); Chloride 113 mmol/L (98-107); Estimated Creatinine Clearance 31 ml/min; Glucose 82 mg/dl (70-99); Potassium 4.5 mmol/L (3.5-5.1); Sodium 137 mmol/L (135-145); eGFR 28.25
[2025-01-01] MEDS: SYNTHROID 88 MCG PO (05:50)
[2025-01-01] MEDS: TYLENOL 650 MG PO (06:29)
[2025-01-01 07:00] VITALS: BP 143/76
[2025-01-01 07:30] LABS: Depakane 69.3 ug/ml (50.0-120.0)
[2025-01-01] MEDS: DIOVAN 160 MG PO (08:00)
[2025-01-01] MEDS: ABILIFY 20 MG PO (08:00)
[2025-01-01] MEDS: LATUDA 120 MG PO (08:01)
[2025-01-01] MEDS: TOPROL XL 50 MG PO (08:01)
[2025-01-01] MEDS: THERAGRAN 1 TABLET PO (08:01)
--- NOTE | 2025-01-01 08:22 | W.PN.HOSP.TC ---
Today's Communication/Plan
-
ertapenem IV
midline
Plan discharge on outpatient IV ABX
trend [facility] level
Assessment / Plan
Assessment / Plan
59F w/ mood disorder, hypertension sent from [place] for evaluation of worsening confusion. Found to have dehydration and UTI.
Acute encephalopathy -improved
Worsening confusion from the baseline according to the report from the ER. She now appears improved after treatment.
Likely secondary to dehydration and UTI.
CT head unremarkable for acute issue
s/p IV fluid
Continue IV antibiotics
PT OT
Fall precaution
Monitor AMS
ESBL E. coli urinary tract infection:
First UCX with normal casie, on recheck UCX now growing E. coli ESBL.
Changed IV antibiotic to ertapenem
ID consulted, they ordered midline. Discussed with ID.
Labs from [facility] show urine culture from 11/2024 with E. coli/Proteus UTI that was dumont S
CKD:
Creatinine stable at 2 today. Reviewed outside records, baseline creatinine is 1.99
Thrombocytopenia:
Reviewed outside records, at least since a few months, has had chronic TCP, with platelets as low as 70s. Has been stable here. today 145
Bipolar disorder:
Omeprazole and Depakote, will continue. Checked Depakote level -low at 35, d/w Dr. Gonsalves, will not increase due to low plt. repeat level now 69.3 (therapeutic). Keep trending every few days now that on Ertapenem.
Lorazepam at at bedtime
Tremor:
Patient reports this is chronic, per neurology Dr. Gonsalves valproic acid can produce a tremor, checked level�35 (therapeutic level 50-100). Rechecked level now that starting carbapenems, up to 69.3, cont to trend.
Hypothyroidism:
Levothyroxine 88 mcg
TSH 2.19
DVT ppx
Lovenox
Dispo
Discussed with the protective services social worker, patient will have to go back to her long-term NH even though she needs IV antibiotics, if she wants to transfer to a different NH after that she needs to work with the in-house protective services social worker
Anticipated Discharge: 24 - 48 hours
Subjective/Interval History
-
Date of Service: January 01, 2025
Patient denies any acute issues overnight, she states that she is worried that the UTI was caused by poor hygiene in the facility due to lack of hot water
Objective Data
-
Labs:
Laboratory Results
01/01/25
04:31
WBC 6.1
Hgb 10.4 L
Hct 30.2 L
Plt Count 145 D
Sodium 137
Potassium 4.5
Chloride 113 H
Carbon Dioxide 19 L
BUN 38 H
Creatinine 2.0 H
Glucose 82
Calcium 9.1
Vital Signs:
Vital Signs
Temp Pulse Resp BP Pulse Ox
98.6 F 110 19 143/76 96
01/01/25 07:00 01/01/25 08:00 01/01/25 07:00 01/01/25 08:00 01/01/25 07:00
I&O
12/31/24 01/01/25 01/02/25
06:59 06:59 06:59
Intake Total 1200 / 1200 1560 / 1560
Balance 1200 / 1200 1560 / 1560
Review of Systems
-
All other systems: Reviewed and negative
Physical Exam
-
General: No Apparent Distress
HEENT: Moist Mucous Membranes, Anicteric and PERRLA
Respiratory: Clear to Auscultation; Negative Wheezes, Rales or Rhonchi
Cardiac: Regular Rhythm and S1/S2; Negative Murmur, Rub or Gallop
GI: Soft, Nontender, Nondistended and Normal Bowel Sounds
Musculoskeletal: No Edema
Skin: Warm and Dry; Negative Rash, Ulcers or Lesions
Neuro: Awake, Alert, AO x 3 and Tremors (mild/fine)
Hematologic / Lymphatic: No Lymphadenopathy
Psych: Calm and Intact Judgement/Insight
Data Reviewed
-
CT Scan: Report Reviewed by me and Discussed with Patient
Labs: Labs Reviewed by me and Discussed with Patient
[2025-01-01] MEDS: STERILE WATER FOR INJECTION IV (11:32)
[2025-01-01] MEDS: INVANZ 60 MG IV (11:33)
--- NOTE | 2025-01-01 14:19 | CM ---
Discharge plan for return to [facility] where she is a resident. Pt on IV abx through 01/06/2025.
Plan: CM following for discharge to [facility] when medically stable.
--- NOTE | 2025-01-01 14:39 | CM ---
Spoke with patient in her room.
Explained that at [place] she will need to return to [facility] longterm .
Explained case supervisor at [facility] will need to locate and transfer to another facility.Pt said she knows case supervisor at [facility] and will speak with her.
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 Fax antibiotics script and Mid line to [phone].
Radha at [facility] aware aware of fax above.
Pt will need ambulance at [facility].
[facility]
report [phone]
fax [phone]
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
--- NOTE | 2025-01-01 14:51 | W.PN.ID1 ---
Date of Service
Date of Service: January 01, 2025
Today's Communication
-Continue Ertapenem 1g IV q24 x7 days through 01/06
- ID will sign off.
Assessment / Plan
# ESBL-Ecoli UTI
# Fever resolved
# Bipolar disorder on depakote
- Blood cx's negative
-Continue Ertapenem 1g IV q24 x7 days through 01/06
- Of note Ertapenem can potentially lower Depakote level/efficacy. Monitor depakote level.
- Infusion sheet submitted to sample case porter on 12/31 and 01/01
- Continue contact isolation.
ID will sign off.
Chief Complaint
-: UTI
Subjective / Review of Systems
Feeling better.
Vital Signs / Physical Exam
Vital Signs
Vital Signs
Temp Pulse Resp BP Pulse Ox
98.6 F 110 19 143/76 96
01/01/25 07:00 01/01/25 08:00 01/01/25 07:00 01/01/25 08:00 01/01/25 11:17
Physical Exam
Constitutional: No Acute Distress and Comfortable
Cardiovascular: Regular Rate and S1/S2
Pulmonary: Clear
Genito-Urinary: Negative CVA Tenderness
Neurological: Awake and Alert
Lines: Other (LUE midline)
Objective Data
Lab Data
Lab Results
01/01/25 04:31
01/01/25 04:31
Estimated Creat Clear 31 ml/min 01/01/25 04:31
Lactic Acid 1.1 mmol/L (0.7-2.0) 12/27/24 10:45
Total Bilirubin 0.5 mg/dl (0.2-1.3) 12/27/24 10:45
AST 19 U/L (14-36) 12/27/24 10:45
ALT 17 U/L (0-35) 12/27/24 10:45
Alkaline Phosphatase 68 U/L (38-126) 12/27/24 10:45
Most recent labs reviewed.
Micro Results:
12/27/24 10:48 Blood Culture - Final
Blood/Venous No Growth - Final Report
12/27/24 10:45 Blood Culture - Final
Blood/Venous No Growth - Final Report
12/28/24 16:07 Urine Culture - Final
Urine Escherichia coli - ESBL
Escherichia coli - ESBL#2
12/27/24 15:10 MRSA Screen - Final
Nose No Methicillin Resistant Staphylococcus aureus isolated.
12/27/24 10:45 Urine Culture - Final
Urine
12/27/24 10:48 Influenza Types A & B (JEREMY) - Final
Nasal Swab Negative for Influenza A & B, NAAT
Negative results must be combined with clinical observations
and patient history.
Nucleic Acid Amplification test (NAAT)performed on the
[employer] platform.
12/29/[address]: No acute intracranial abnormality.
12/27/24 CXR: No acute disease of the chest.
12/27/24 CT a/p: There is mild perivesicular stranding suggestive of cystitis. There is mild asymmetric stranding along the right kidney suspicious for infection. There is no evidence of obstructing stone although streak artifact limits evaluation of
the pelvis. No hydronephrosis. 3.4 x 2.8 cm fat-containing heterogeneous lesion within the right adnexa consistent with ovarian dermoid.
[2025-01-01 14:53] VITALS: BP 127/84
[2025-01-01 14:58] VITALS: BP 127/84; PULSE 55; O2SAT 100
[2025-01-01] MEDS: LOVENOX 40 MG SC (17:23)
[2025-01-01] MEDS: ATIVAN 0.5 MG PO (21:11)
[2025-01-01] MEDS: DEPAKOTE (12 HR RELEASE) 2500 MG PO (21:28)
[2025-01-01] MEDS: DITROPAN 5 MG PO (21:28)
[2025-01-01] MEDS: DILAUDID 0.25 MG IV (22:21)
[2025-01-01 23:06] VITALS: BP 119/71
[2025-01-02] MEDS: SYNTHROID 88 MCG PO (05:18)
[2025-01-02] MEDS: ABILIFY 20 MG PO (09:03)
[2025-01-02 09:15] VITALS: BP 127/67
[2025-01-02] MEDS: THERAGRAN 1 TABLET PO (09:16)
[2025-01-02] MEDS: LATUDA 120 MG PO (09:18)
[2025-01-02] MEDS: TOPROL XL PO (09:54)
[2025-01-02] MEDS: DIOVAN 160 MG PO (09:55)
--- NOTE | 2025-01-02 10:24 | W.DCSUMMARY ---
Discharge Summary
Discharge Data
Date of Admission: 12/27/24
Date of Discharge: 01/02/25
Total time spent discharging patient (in min): 40
-
Pending Results: No
Hospital Course
Attending physician on day of discharge:
Cassi Maradiaga MD
Admission diagnosis:
Acute encephalopathy
Discharge diagnosis:
ESBL E. coli UTI
Secondary diagnoses:
Bipolar disease
Chronic thrombocytopenia
CKD
Tremor
Hypothyroidism
Hypertension
Consultations:
ID
Procedures:
PICC line
Hospital course:
59F with bipolar, hypertension P/W confusion from NH. CT head unremarkable. Urine culture positive for ESBL E. coli. Placed on IV antibiotics changed to ertapenem per ID, PICC line placed. Patient to complete course 01/06. Confusion improved.
Of note Depakote level was low on admission, repeat level was therapeutic. Level will need to be monitored closely at patient's SNF as she is getting the ertapenem.
Physical exam on discharge:
Gen: NAD, obese
HEENT: PERRLA, EOMI, MMM, neck supple
Cards: RRR, no M/G/R
Resp: Lungs CTAB, no W/R/R
GI: soft, NT/ND/NABS
MSK: No edema
Skin: warm and dry, no rash, ulcer or lesions
Heme: No LAD
Psych: Calm, fine tremor.
Neuro: AAOx3
Discharge disposition:
Back to her NH
Discharge Plan
-
Patient Disposition: Care Home/SNF
Discharge Diagnosis/Procedures: ESBL E. Coli UTI
Diet: Regular
Blood Work: Depakote levels every few days while on Ertapenem
Activity Restrictions/Additional Instructions:
Monitor Depakote levels
Referrals:
César He, DO [Active, Infectious Diseases]
Massimo Julien MD [Family Provider]
Additional Discharge Medication Instructions: Ertapenem 1g IV q24 x7 days through 01/06 then remove PICC
Prescriptions:
New
Ertapenem [Invanz] 1000 MG
0.9% Sodium Chloride [Nss] 50 ML
100 mls/hr IV Q24H
Reason for use: UTI
Ordered By: Cassi Maradiaga MD
Last Taken: 01/01/25 11:33 60 mls
Continued
acetaminophen [Tylenol] 325 mg Tablet
650 mg PO Q6HPRN PRN (Reason: MILD PAIN)
metoprolol succinate [Toprol XL] 50 mg Tablet Extended Release 24 Hr
50 mg PO DAILY
therapeutic multivitamin Tablet
1 tab PO DAILY
divalproex [Depakote] 500 mg Tablet,Delayed Release (Dr/Ec)
2,500 mg PO HS
levothyroxine [Synthroid] 88 mcg Tablet
88 mcg PO DAILY
lorazepam 0.5 mg Tablet
0.5 mg PO HS
magnesium hydroxide [Milk of Magnesia] 400 mg/5 mL Suspension
2,400 mg PO HSPRN PRN (Reason: IF NO BM BY 3RD DAY)
bisacodyl [Dulcolax (bisacodyl)] 10 mg Suppository
10 mg [facility] DAILYPRN PRN (Reason: IF NO BM AFTR MOM)
Fleet Enema 19-7 gram/118 mL Enema
118 ml VA DAILYPRN PRN (Reason: IF NO BM AFTR DULCOLAX)
oxybutynin chloride 5 mg Tablet Extended Release 24hr
5 mg PO HS
valsartan 160 mg Tablet
160 mg PO DAILY
aripiprazole 20 mg Tablet
20 mg PO DAILY
lurasidone [Latuda] 120 mg Tablet
120 mg PO DAILY
Discharge Orders:
Discharge Patient (As Directed); Ordered 01/02/25
Ordered By: Cassi Maradiaga
Discharge Date and Time
Print Language: SAO TOMEAN
--- NOTE | 2025-01-02 10:44 | CM ---
Addendum entered by Faith Pennington RN 01/02/25 14:25:
Refaxed IV antibiotics script to [phone] as Radha instructed .
Addendum entered by Faith Pennington RN 01/02/25 12:07:
IMM reviewed signed on chart. Pt asked this CM to call her mom Rob [phone] to inform of discharge.Spoke with her mom . Her mom is in agreement to return to [facility] long-term . Informed her mom that pt wants to transfer to another long-term
facility after return. Her mom said she does not think so but will speak with patient .Radha walsh [facility] aware of pts request.
Ambulance set up .
Original Note:
MD entered order for discharge.
Return to [facility] card tender .
Pt said she knows cyanide case hardener at [facility] and will speak with her about transfer to another facility.
Pt will be on long-term IV antibiotics.ID provided IV antibiotics script. Fax antibiotics script and Mid line to [phone].
Radha walsh [facility] aware aware of fax above.
Pt will need ambulance at [facility].Medical nec form completed.
[facility]
report [phone]
fax [phone]
PLAN Return to [facility] long-term
[2025-01-02] MEDS: INVANZ 60 MG IV (12:11)
[2025-01-02] MEDS: DILAUDID 0.25 MG IV (13:08)
[2025-01-02 13:15] VITALS: BP 125/75
[2025-01-02] MEDS: STERILE WATER FOR INJECTION IV (13:18)
== END 2025-01-02 14:28 | DRG 689 ==
LOC: 3 WEST ACU 13:00
PROVIDERS: Psychiatry & Neurology Neurology; ADMITTING PHYSICIAN Internal Medicine; ATTENDING PHYSICIAN Internal Medicine; CONSULT PHYSICIAN Internal Medicine Infectious Disease; EMERGENCY PHYSICIAN Emergency Medicine; FAMILY PHYSICIAN Internal Medicine
DX: N39.0 Urinary tract infection, site not specified (principal); G93.41 Metabolic encephalopathy; Z16.12 Extended spectrum beta lactamase (ESBL) resistance; Z68.41 Body mass index [BMI] 40.0-44.9, adult; E86.0 Dehydration; N18.9 Chronic kidney disease, unspecified; I12.9 Hypertensive chronic kidney disease with stage 1 through stage 4 chronic kidney disease, or unspecified chronic kidney disease; F31.9 Bipolar disorder, unspecified; E03.9 Hypothyroidism, unspecified; D69.6 Thrombocytopenia, unspecified; Z96.643 Presence of artificial hip joint, bilateral; B96.20 Unspecified Escherichia coli [E. coli] as the cause of diseases classified elsewhere; E66.9 Obesity, unspecified; Z79.899 Other long term (current) drug therapy; Z11.52 Encounter for screening for COVID-19; Z87.440 Personal history of urinary (tract) infections; Z79.890 Hormone replacement therapy
CPT/HCPCS: 70450; 71046; 74176; 80048; 80053; 80164; 81003; 81015; 82607; 82746; 83605; 84443; 85025; 85027; 87040; 87070; 87077; 87086; 87186; 87502; 87811; 92526; 92610; 93970; 96361; 96374; 97116; 97163; 97167; 97530; 97535; 99285; J1335